=== PATIENT | male | born 1945 | race Caucasian/White ===

== ENCOUNTER 2016-09-04 20:57 | Emergency (ER) | payer MEDICARE ==
[~2016-09-04 20:57] MED LIST: ACETAMINOPHEN325 MG PO; COUMADIN2.5 MG PO; COUMADIN7.5 MG PO; FAMOTIDINE20 MG PO; FEOSOL-DPS325 MG PO; FERROUS SULFAT324 MG PO; FLORINEF0.1 MG PO; FUROSEMIDE40 MG PO; KLOR-CON M2020 MEQ PO; LOPERAMIDE2 M1 PO; MAGNESIUM OXID400 MG PO; NORCO 7.5-3251 EACH PO; VITAMIN D PO; [UNRECOGNIZED DRUG - OTHER] IH; [UNRECOGNIZED DRUG - OTHER] PO; [UNRECOGNIZED DRUG - OTHER] PO; [UNRECOGNIZED DRUG - REMARK] IH
--- NOTE | 2016-09-05 04:20 | ER ---
ADMIT: 09/04/2016 RM/LOC: ER [facility] MR#: [id number] [id number] [place], [place] [address] AYANA BOWLES [address] [place] [address] *[facility] Emergency Room Report SEX: M AGE: 71 : 1945 DATE: 09/04/2016 CHIEF COMPLAINT: Fell, hit head on blood thinner. HISTORY OF PRESENT ILLNESS: The patient is a 71-year-old male, who takes Coumadin for history of DVT. He states that he was leaving an event for his grandchild at high school when he did not see a drop-off in the ground ahead of him, misstepped, fell forward, hit his head on the ground. He did not lose consciousness and EMS was called and transported to our facility for further evaluation. At this point, he denies any vision changes. He does not have any numbness, tingling, or weakness in the extremity. He has no neck pain. He does not have any nausea. PAST MEDICAL HISTORY: Significant for DVT on Coumadin. MEDICATIONS: See nurse's note. ALLERGIES: SEE NURSE'S NOTE. PHYSICAL EXAMINATION: VITAL SIGNS: Blood pressure 151/84, pulse 102, respirations 18, temp 96.9, sats 98% on room air. Airway patent. Breathing spontaneous. Circulation is good in all 4 extremities. HEENT: Secondary survey examination, patient's head reveals he does have a slight abrasion on his left temporal region. There is no swelling, no ecchymosis. Head is otherwise atraumatic. Pupils are equal, round, and reactive to light. Extraocular muscles are intact. There is no trauma to the facial bones I can appreciate. No oral injury. NECK: Supple. There is no midline cervical tenderness. HEART: Regular rate and rhythm. LUNGS: Clear to auscultation. He does have some very slight tenderness to his left anterior lateral chest wall, but there is no ecchymosis here. No abrasion or swelling. ABDOMEN: Otherwise soft. SKIN: Warm and dry in all 4 extremities. He has good pulses in all 4 extremities. SENSORY AND MOTOR: Normal. ADMIT: 09/04/2016 RM/LOC: ER [facility] MR#: [id number] [address] [id number] AYANA BOWLES [address] [place] [id number] [facility] Emergency Room Report SEX: M AGE: 71 : 1945 IMAGING DATA: CT head was done, which shows no acute findings. He did have an INR done this morning at his doctor's office, which he reports 2.37. It was not repeated here in the ER this evening. EMERGENCY DEPARTMENT COURSE: We did have the patient called as a partial trauma as he fell and is on blood thinners. His evaluation showed only a slight abrasion to the left side of his temporal region of his face, but he has otherwise no significant injuries. The patient was able to stand and felt like he was at his normal baseline and feels okay going home. The patient is discharged home. DIAGNOSIS: Abrasion to face. James Emery MD/ nolan JOB #: [id number] CC: James Emery MD, Attending Physician Martir Maier MD, Family Physician
== END 2016-09-04 22:25 | disposition home or self-care (01) ==
LOC: ER 20:57
DX: S00.81XA Abrasion of other part of head, initial encounter (principal); Z79.01 Long term (current) use of anticoagulants; W20.8XXA Other cause of strike by thrown, projected or falling object, initial encounter